=== PATIENT | female | born 1940 | race Caucasian/White ===

== ENCOUNTER 2017-05-02 13:12 | Observation (INO) | payer MEDICARE, BC ==
[2017-05-02] MEDS ORDERED: Aspirin 81 MG Tab.Chew PO ONE (13:55)
--- NOTE | 2017-05-02 14:11 | EDM.PDOC ---
ED HPI GENERAL MEDICAL PROBLEM - General Chief Complaint: Chest Pain Stated Complaint: CHEST PAIN/HEART PALPITATIONS Time Seen by Provider: 05/02/17 14:06 Source of Information: Reports: Patient History Limitations: Reports: No Limitations - History of Present Illness INITIAL COMMENTS - FREE TEXT/NARRATIVE: pt arrived with pressure in her chest and the feeling of palpitation. She states this started about 4-5 days.ago. She has not had severe chest pain. She has been mildly sob. Onset: Gradual, Other ( This has been going on for the past 5 days. ) Duration: Day(s): Location: Reports: Chest Associated Symptoms: Reports: No Other Symptoms, Cough, Shortness of Breath Chest Pain Score (Numeric/FACES): 5 - Related Data Allergies Allergy/AdvReac Type Severity Reaction Status Date / Time Sulfa (Sulfonamide Allergy Unknown Itching Verified 05/02/17 13:30 Antibiotics) Home Meds: Home Meds Multivitamin [Multivitamins] 1 each PO DAILY 02/08/13 [History] Neomycin/Polymyxin B Sulf/HC [Gspzozng-Fjpesgosj-Po Ear Soln] 1 drop EARBOTH DAILY 02/08/13 [History] Omeprazole 20 mg PO DAILY 02/08/13 [History] Quinapril HCl 20 mg PO DAILY 02/08/13 [History] Triamterene/Hydrochlorothiazid [Triamterene-HCTZ 37.5-25 MG] 1 each PO DAILY 04/22 [History] atorvaSTATin [Lipitor] 40 mg PO DAILY 02/08/13 [History] metFORMIN HCl [Metformin HCl] 1,000 mg PO BID 02/08/13 [History] glipiZIDE/Metformin HCl [GlipiZIDE-Metformin 5-500 MG] 1 each PO BID 05/02/17 [ History] Apixaban [Eliquis] 10 mg PO BID #60 tablet 05/03/17 [Rx] Past Medical History Cardiovascular History: Reports: High Cholesterol, Hypertension Gastrointestinal History: Reports: GERD 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: Musculoskeletal History: Reports: Arthritis, Back Pain, Chronic, Osteoarthritis Endocrine/Metabolic History: Reports: Diabetes, Type II Oncologic (Cancer) History: Reports: Basal Cell Carcinoma, Squamous Cell Carcinoma Dermatologic History: Reports: Melanoma, Other (See Below) Other Dermatologic History: actinic keratoses - Past Surgical History Cardiovascular Surgical History: Reports: Percutaneous Transluminal Angioplasty Musculoskeletal Surgical History: Reports: Knee Replacement Other Musculoskeletal Surgeries/Procedures:: right Social & Family History - Tobacco Use Smoking Status *Q: Never Smoker Second Hand Smoke Exposure: No - Caffeine Use Caffeine Use: Reports: Coffee - Recreational Drug Use Recreational Drug Use: No ED ROS GENERAL - Review of Systems Review Of Systems: See Below Constitutional: Reports: No Symptoms HEENT: Reports: No Symptoms Respiratory: Reports: No Symptoms Cardiovascular: Reports: Other ( chest pressure) Endocrine: Reports: No Symptoms GI/Abdominal: Reports: No Symptoms : Reports: No Symptoms Musculoskeletal: Reports: No Symptoms Skin: Reports: No Symptoms ED EXAM, GENERAL - Physical Exam Exam: See Below Free Text/Narrative:: pt arrived with palpitations.She has mild sob. When she notes the irregularitty she has chest pressure. Exam Limited By: No Limitations General Appearance: Alert, Mild Distress Ears: Normal TMs Nose: Normal Inspection Throat/Mouth: Normal Inspection Head: Atraumatic Neck: Normal Inspection Respiratory/Chest: No Respiratory Distress Cardiovascular: Regular Rate, Rhythm, Other ( She is noted to have an occasional pac. ) GI/Abdominal: Soft, Non-Tender (Female) Exam: Deferred Rectal (Female) Exam: Deferred Back Exam: Normal Inspection Extremities: Normal Inspection Neurological: Alert, Oriented, Normal Cognition Course - Vital Signs Last Recorded V/S: Last Vital Signs Temp 36.6 C 05/03/17 10:49 Pulse 73 05/03/17 10:49 Resp 22 H 05/03/17 10:49 BP 147/78 H 05/03/17 12:17 Pulse Ox 97 05/03/17 10:49 - Orders/Labs/Meds Labs: Laboratory Tests 05/02/17 05/02/17 05/02/17 Range/Units 13:53 14:00 14:00 WBC 8.0 (4.5-11.0) K/uL RBC 3.68 (3.30-5.50) M/uL Hgb 11.3 L (12.0-15.0) g/dL Hct 33.6 L (36.0-48.0) % MCV 91 (80-98) fL MCH 31 (27-31) pg MCHC 34 (32-36) % Plt Count 381 (150-400) K/uL Neut % (Auto) 66 (36-66) % Lymph % (Auto) 24 (24-44) % [place] % (Auto) 9 H (2-6) % Eos % (Auto) 2 (2-4) % Baso % (Auto) 0 (0-1) % D-Dimer, Quantitative 1890 H (0.0-400.0) ng/mL Sodium (140-148) mmol/L Potassium (3.6-5.2) mmol/L Chloride (100-108) mmol/L Carbon Dioxide (21-32) mmol/L Anion Gap (5.0-14.0) mmol/L BUN (7-18) mg/dL Creatinine (0.6-1.0) mg/dL Est Cr Clr Drug Dosing mL/min Estimated GFR (MDRD) (>60) Glucose (74-106) mg/dL Calcium (8.5-10.1) mg/dL Iron (50-170) ug/dL TIBC (250-450) ug/dl % Saturation (20-55) % Total Bilirubin (0.2-1.0) mg/dL AST (15-37) U/L ALT (12-78) U/L Alkaline Phosphatase (46-116) U/L Creatine Kinase (26-192) U/L Troponin I < 0.017 (0.000-0.056) ng/mL Total Protein (6.4-8.2) g/dL Albumin (3.4-5.0) g/dL Globulin (2.3-3.5) g/dL Albumin/Globulin Ratio (1.2-2.2) TSH, Ultra Sensitive (0.358-3.740) uIU/mL 05/02/17 05/02/17 05/02/17 Range/Units 14:00 14:05 14:05 WBC (4.5-11.0) K/uL RBC (3.30-5.50) M/uL Hgb (12.0-15.0) g/dL Hct (36.0-48.0) % MCV (80-98) fL MCH (27-31) pg MCHC (32-36) % Plt Count (150-400) K/uL Neut % (Auto) (36-66) % Lymph % (Auto) (24-44) % [place] % (Auto) (2-6) % Eos % (Auto) (2-4) % Baso % (Auto) (0-1) % D-Dimer, Quantitative (0.0-400.0) ng/mL Sodium 124 L (140-148) mmol/L Potassium 3.8 (3.6-5.2) mmol/L Chloride 93 L (100-108) mmol/L Carbon Dioxide 27 (21-32) mmol/L Anion Gap 7.8 (5.0-14.0) mmol/L BUN 18 (7-18) mg/dL Creatinine 1.0 (0.6-1.0) mg/dL Est Cr Clr Drug Dosing 39.04 mL/min Estimated GFR (MDRD) 54 L (>60) Glucose 72 L (74-106) mg/dL Calcium 9.5 (8.5-10.1) mg/dL Iron 57 (50-170) ug/dL TIBC 290 (250-450) ug/dl % Saturation 20 (20-55) % Total Bilirubin 0.4 (0.2-1.0) mg/dL AST 17 (15-37) U/L ALT 23 (12-78) U/L Alkaline Phosphatase 72 (46-116) U/L Creatine Kinase 115 (26-192) U/L Troponin I (0.000-0.056) ng/mL Total Protein 6.6 (6.4-8.2) g/dL Albumin 3.6 (3.4-5.0) g/dL Globulin 3.0 (2.3-3.5) g/dL Albumin/Globulin Ratio 1.2 (1.2-2.2) TSH, Ultra Sensitive 1.045 (0.358-3.740) uIU/mL Meds: Medications Discontinued Medications Generic Name Dose Route Start Last Admin Trade Name Freq PRN Reason Stop Dose Admin Acetaminophen 650 mg 05/02/17 19:15 Tylenol PO Q4H PRN Pain (Mild 1-3)/fever Apixaban 10 mg 05/02/17 21:00 05/03/17 12:19 Eliquis PO 10 mg BID APPLE Administration Aspirin 223 mg 05/02/17 13:55 05/02/17 14:07 Aspirin PO 05/02/17 13:56 223 mg ONETIME ONE Administration Aspirin 81 mg 05/03/17 09:00 05/03/17 12:18 Halfprin PO Not Given DAILY APPLE Atorvastatin Calcium 40 mg 05/03/17 09:00 05/03/17 12:18 Lipitor PO Not Given DAILY APPLE Dextrose 15 gm 05/02/17 19:15 Glutose 15 PO ONETIME PRN Hypoglycemia Dextrose/Water 50 ml 05/02/17 19:15 Dextrose 50% In Water IV ONETIME PRN Hypoglycemia Sodium Chloride 90 mls @ 4 mls/sec 05/02/17 15:45 05/02/17 16:12 Normal Saline IV 4 mls/sec ASDIRECTED APPLE Administration Sodium Chloride 1,000 mls @ 125 mls/hr 05/02/17 19:15 05/03/17 11:09 Normal Saline IV 125 mls/hr ASDIRECTED APPLE Administration Insulin Aspart 0 unit 05/02/17 20:00 05/03/17 11:50 Novolog SUBCUT Not Given QIDACANDBED [facility] Protocol Iopamidol 100 ml 05/02/17 15:45 05/02/17 16:12 Isovue-370 (76%) IV 100 ml . DIRECTED APPLE Administration Metformin HCl 1,000 mg 05/02/17 21:45 05/03/17 08:00 Glucophage PO Not Given BIDMEALS [facility] Ondansetron HCl 4 mg 05/02/17 19:15 Zofran IV Q4H PRN Nausea/Vomiting Oxycodone HCl 5 mg 05/02/17 19:15 Oxycodone PO Q4H PRN Pain (moderate 4-6) Pantoprazole Sodium 40 mg 05/03/17 07:30 05/03/17 07:30 Protonix PO Not Given ACBREAKFAST APPLE Quinapril HCl 20 mg 05/03/17 09:00 05/03/17 12:17 Accupril PO 20 mg DAILY APPLE Administration Sodium Chloride 10 ml 05/02/17 15:44 05/02/17 16:07 Saline Flush FLUSH 05/02/17 15:45 10 ml ONETIME ONE Administration Sodium Chloride 10 ml 05/02/17 19:15 Saline Flush FLUSH ASDIRECTED PRN Keep Vein Open Triamterene/HCTZ 1 each 05/03/17 09:00 05/03/17 12:18 Dyazide 25-37.5 Mg PO 1 each DAILY APPLE Administration - Re-Assessments/Exams Free Text/Narrative Re-Assessment/Exam: 05/02/17 15:39 pt has a up ddimer. Her rt leg is tender in the thigh area. She had an Us that was neg. Her chest pressure has been going on for about 1 week. She is very fatiqued. Her trop is neg. Her na is borderline and her hg is 11.4. She is not eating well at this point. 05/02/17 15:40 05/02/17 17:18 angio of the chest revealed a segmental PE in the rt upper lobe. The situation was discussed with the pt and she would rather be hospitalized particurly in the lite of the heart irregularity which we have not demonstrated. Her heart was monitored and she has had a few pacs. Departure - Departure Time of Disposition: 17:21 Disposition: Admitted As Inpatient 68 Condition: Fair Clinical Impression: Pulmonary emboli, Total knee replacement status
--- NOTE | 2017-05-02 14:35 | CR ---
Chest 1V Frontal INDICATION: palpitations and chest pressure FINDINGS: Comparison 09/09/2007. Negative AP portable chest x-ray.
[2017-05-02] MEDS ORDERED: Sodium Chloride 0.9% 10 ML Syringe FLUSH ONE (15:44)
[2017-05-02] MEDS ORDERED: Iopamidol 755 Mg/ML 100 ML Bottle IV SCH (15:45)
[2017-05-02] MEDS ORDERED: Sodium Chloride 0.9% 90 ML IV SCH (15:45)
--- NOTE | 2017-05-02 17:59 | PCM.HP ---
H&P History of Present Illness - General Date of Service: 05/02/17 Admit Problem/Dx: Source of Information: Patient, Provider, RN Notes Reviewed History Limitations: Reports: No Limitations - History of Present Illness Initial Comments - Free Text/Narative: Ms. Mensah is a 76-year-old woman who was admitted to observation status for further evaluation and management of small subsegmental pulmonary embolism and palpitations. She is status post right total knee arthroplasty done 4 weeks ago. Is having some ongoing difficulty bending the knee but otherwise has been able to walk fairly well. Over the last 4-5 days is noted episodes of her heart racing or fluttering sensation in her chest and associated with this has been some shortness of breath. Laboratory studies are unremarkable there is no evidence of underlying infection. D-dimer was found to be elevated, venous Doppler study of the right lower extremity showed no evidence of deep vein thrombosis. CT angiogram of the chest does document a small sub-segmental pulmonary embolism.she is been monitored in the emergency department and there' ve been no significant cardiac dysrhythmias, other than occasional premature atrial complexes. Chest Pain Score (Numeric/FACES): 5 - Related Data Allergies/Adverse Reactions: Allergies Allergy/AdvReac Type Severity Reaction Status Date / Time Sulfa (Sulfonamide Allergy Unknown Itching Verified 05/02/17 13:30 Antibiotics) Home Medications: Home Meds Aspirin [Halfprin] 81 mg PO DAILY 02/08/13 [History] Multivitamin [Multivitamins] 1 each PO DAILY 02/08/13 [History] Neomycin/Polymyxin B Sulf/HC [Hgjahyfr-Zifrhgdpm-Gq Ear Soln] 1 drop EARBOTH DAILY 02/08/13 [History] Omeprazole 20 mg PO DAILY 02/08/13 [History] Quinapril HCl 20 mg PO DAILY 02/08/13 [History] Triamterene/Hydrochlorothiazid [Triamterene-HCTZ 37.5-25 MG] 1 each PO DAILY 04/22 [History] atorvaSTATin [Lipitor] 40 mg PO DAILY 02/08/13 [History] metFORMIN HCl [Metformin HCl] 1,000 mg PO BID 02/08/13 [History] Past Medical History Cardiovascular History: Reports: High Cholesterol, Hypertension Gastrointestinal History: Reports: GERD 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: Musculoskeletal History: Reports: Arthritis, Back Pain, Chronic, Osteoarthritis Endocrine/Metabolic History: Reports: Diabetes, Type II Oncologic (Cancer) History: Reports: Basal Cell Carcinoma, Squamous Cell Carcinoma Dermatologic History: Reports: Melanoma, Other (See Below) Other Dermatologic History: actinic keratoses - Past Surgical History Cardiovascular Surgical History: Reports: Percutaneous Transluminal Angioplasty Musculoskeletal Surgical History: Reports: Knee Replacement Other Musculoskeletal Surgeries/Procedures:: right Social & Family History - Tobacco Use Smoking Status *Q: Never Smoker Second Hand Smoke Exposure: No - Caffeine Use Caffeine Use: Reports: Coffee - Recreational Drug Use Recreational Drug Use: No H&P Review of Systems - Review of Systems: Review Of Systems: See Below General: Reports: Weakness, Decreased Appetite. Denies: Fever, Chills, Diaphoresis HEENT: Reports: No Symptoms Pulmonary: Reports: Shortness of Breath. Denies: Wheezing, Pleuritic Chest Pain , Cough, Sputum, Hemoptysis Cardiovascular: Reports: Dyspnea on Exertion. Denies: Chest Pain, Palpitations , Orthopnea, PND, Edema, Lightheadedness Gastrointestinal: Reports: No Symptoms Genitourinary: Reports: No Symptoms Musculoskeletal: Reports: Joint Pain Skin: Reports: No Symptoms Psychiatric: Reports: No Symptoms Neurological: Reports: No Symptoms Hematologic/Lymphatic: Reports: No Symptoms Immunologic: Reports: No Symptoms Exam - Exam Exam: See Below - Vital Signs Vital Signs: Last Vital Signs Temp 97.3 F 05/02/17 13:46 Pulse 71 05/02/17 14:59 Resp 17 05/02/17 14:59 BP 141/84 H 05/02/17 14:59 Pulse Ox 98 05/02/17 14:59 Weight: 172 lb - Exam Quality Assessment: DVT Prophylaxis General: Alert, Oriented, Cooperative HEENT: Conjunctiva Clear, Hearing Intact, Mucosa Moist & [place], Normal Nasal Septum, Posterior Pharynx Clear, Pupils Equal Neck: Supple, Trachea Midline, +2 Carotid Pulse wo Bruit Lungs: Clear to Auscultation, Normal Respiratory Effort Cardiovascular: Regular Rate, Regular Rhythm, Normal S1, Normal S2. No: Systolic Murmur, Diastolic Murmur GI/Abdominal Exam: Soft, Non-Tender, No Organomegaly, No Distention Back Exam: Normal Inspection, Full Range of Motion Extremities: Non-Tender, No Pedal Edema, Other (Incision right knee healing well with no evidence of underlying infection) Skin: Warm, Dry, Intact Neurological: Cranial Nerves Intact, Strength Equal Bilateral, Normal Speech, Normal Tone, Sensation Intact. No: Focal Deficit Neuro Extensive - Mental Status: Alert, Oriented x3, Normal Mood/Affect, Normal Cognition, Memory Intact - Patient Data Lab Results Last 24 hrs: Laboratory Results - last 24 hr 05/02/17 05/02/17 05/02/17 Range/Units 13:53 14:00 14:00 WBC 8.0 (4.5-11.0) K/uL RBC 3.68 (3.30-5.50) M/uL Hgb 11.3 L (12.0-15.0) g/dL Hct 33.6 L (36.0-48.0) % MCV 91 (80-98) fL MCH 31 (27-31) pg MCHC 34 (32-36) % Plt Count 381 (150-400) K/uL Neut % (Auto) 66 (36-66) % Lymph % (Auto) 24 (24-44) % [place] % (Auto) 9 H (2-6) % Eos % (Auto) 2 (2-4) % Baso % (Auto) 0 (0-1) % D-Dimer, Quantitative 1890 H (0.0-400.0) ng/mL Sodium (140-148) mmol/L Potassium (3.6-5.2) mmol/L Chloride (100-108) mmol/L Carbon Dioxide (21-32) mmol/L Anion Gap (5.0-14.0) mmol/L BUN (7-18) mg/dL Creatinine (0.6-1.0) mg/dL Est Cr Clr Drug Dosing mL/min Estimated GFR (MDRD) (>60) Glucose (74-106) mg/dL Calcium (8.5-10.1) mg/dL Iron (50-170) ug/dL TIBC (250-450) ug/dl % Saturation (20-55) % Total Bilirubin (0.2-1.0) mg/dL AST (15-37) U/L ALT (12-78) U/L Alkaline Phosphatase (46-116) U/L Creatine Kinase (26-192) U/L Troponin I < 0.017 (0.000-0.056) ng/mL Total Protein (6.4-8.2) g/dL Albumin (3.4-5.0) g/dL Globulin (2.3-3.5) g/dL Albumin/Globulin Ratio (1.2-2.2) TSH, Ultra Sensitive (0.358-3.740) uIU/mL 05/02/17 05/02/17 05/02/17 Range/Units 14:00 14:05 14:05 WBC (4.5-11.0) K/uL RBC (3.30-5.50) M/uL Hgb (12.0-15.0) g/dL Hct (36.0-48.0) % MCV (80-98) fL MCH (27-31) pg MCHC (32-36) % Plt Count (150-400) K/uL Neut % (Auto) (36-66) % Lymph % (Auto) (24-44) % [place] % (Auto) (2-6) % Eos % (Auto) (2-4) % Baso % (Auto) (0-1) % D-Dimer, Quantitative (0.0-400.0) ng/mL Sodium 124 L (140-148) mmol/L Potassium 3.8 (3.6-5.2) mmol/L Chloride 93 L (100-108) mmol/L Carbon Dioxide 27 (21-32) mmol/L Anion Gap 7.8 (5.0-14.0) mmol/L BUN 18 (7-18) mg/dL Creatinine 1.0 (0.6-1.0) mg/dL Est Cr Clr Drug Dosing 39.04 mL/min Estimated GFR (MDRD) 54 L (>60) Glucose 72 L (74-106) mg/dL Calcium 9.5 (8.5-10.1) mg/dL Iron 57 (50-170) ug/dL TIBC 290 (250-450) ug/dl % Saturation 20 (20-55) % Total Bilirubin 0.4 (0.2-1.0) mg/dL AST 17 (15-37) U/L ALT 23 (12-78) U/L Alkaline Phosphatase 72 (46-116) U/L Creatine Kinase 115 (26-192) U/L Troponin I (0.000-0.056) ng/mL Total Protein 6.6 (6.4-8.2) g/dL Albumin 3.6 (3.4-5.0) g/dL Globulin 3.0 (2.3-3.5) g/dL Albumin/Globulin Ratio 1.2 (1.2-2.2) TSH, Ultra Sensitive 1.045 (0.358-3.740) uIU/mL Result Diagrams: 05/02/17 14:00 05/02/17 14:00 *Q Meaningful Use (ADM) - VTE *Q VTE Criteria *Q: - VTE Risk Assess *Q Each Risk Factor Represents 1 Point: Obesity ( BMI > 25 kg/m2) Total Score 1 Point Risk Factors: 1 Each Risk Factor Represents 2 Points: Age 60 - 74 Years Total Score 2 Point Risk Factors: 2 Each Risk Factor Represents 3 Points: None Total Score 3 Point Risk Factors: 0 Each Risk Factor Represents 5 Points: Elective Major Lower Extremity Arthroplasty Total Score 5 Point Risk Factors: 5 Venous Thromboembolism Risk Factor Score *Q: 8 - Stroke *Q Stroke Criteria *Q: - AMI *Q AMI Criteria *Q: Problem List Initiated/Reviewed/Updated: Yes Orders Last 24hrs: Active Orders 24 hr Category Date Time Status Patient Status Manage Transfer [TRANSFER] Routine ADT 05/02/17 17:43 Ordered EKG Documentation Completion [RC] ASDIRECTED Care 05/02/17 13:53 Active Ang Chest [CT] Stat Exams 05/02/17 15:37 Taken VL Duplex Lwr Ext Veins Ltd Rt [US] Stat Exams 05/02/17 14:41 Taken UA W/MICROSCOPIC [URIN] Urgent Lab 05/02/17 13:53 Uncollected Iopamidol [Isovue-370 (76%)] Med 05/02/17 15:45 Active 100 ml IV . DIRECTED Sodium Chloride 0.9% [Normal Saline] 90 ml Med 05/02/17 15:45 Active IV ASDIRECTED Resuscitation Status Routine Resus Stat 05/02/17 17:45 Ordered EKG 12 Lead [EK] Routine Ther 05/02/17 13:53 Ordered Medication Orders Sodium Chloride (Normal Saline) 90 mls @ 4 mls/sec IV ASDIRECTED APPLE Last Admin: 05/02/17 16:12 Dose: 4 mls/sec Iopamidol (Isovue-370 (76%)) 100 ml IV . DIRECTED APPLE Last Admin: 05/02/17 16:12 Dose: 100 ml Assessment/Plan Comment:: ASSESSMENT AND PLAN SMALL PULMONARY EMBOLISM-mild symptoms of palpitation and shortness of breath over the past 4-5 days. No evidence of persistent thrombus in the right lower extremity by venous Doppler study. I discussed options for anticoagulation including Lovenox overlap therapy with warfarin versus Eliquis. Risks and goals of each approach and she has decided to try the eliquis. -Eliquis 10 mg by mouth twice a day 1 week, then 5 mg by mouth twice a day thereafter, for 3 months PALPITATIONS-history of fluttering sensation in the chest over the past 4-5 days. No evidence of significant dysrhythmias identified while monitored in the emergency department -Cardiac monitoring STATUS POST RIGHT TOTAL KNEE ARTHROPLASTY-incision is clean with no evidence of underlying infection TYPE 2 DIABETES MELLITUS-she reports a blood glucose levels have been somewhat variable since surgery -Continue metformin -4 times a day glucometer -Low-dose sliding scale NovoLog MAINTENANCE ISSUES -DVT prophylaxis; current therapy with Eliquis should provide adequate DVT prophylaxis -GI prophylaxis; continue outpatient PPI therapy -Dickinson catheter; not indicated -Nutrition; 2 g sodium consistent carb diet -Nicotine dependence; not required CODE STATUS-FULL CODE ADMISSION STATUS-this patient will be admitted to observation status, expect no more than a one night hospital stay for evaluation and management of problems as outlined above. DISPOSITION-anticipate discharge to home after the hospital stay. PRIMARY CARE PROVIDER-Dr. Haynes
[2017-05-02] MEDS ORDERED: oxyCODONE 5 MG Tab PO PRN (19:15)
[2017-05-02] MEDS ORDERED: Ondansetron 4 MG/2 ML SDV IV PRN (19:15)
[2017-05-02] MEDS ORDERED: 50% Dextrose in Water 50 ML Syringe IV PRN (19:15)
[2017-05-02] MEDS ORDERED: Sodium Chloride 0.9% 10 ML Syringe FLUSH PRN (19:15)
[2017-05-02] MEDS ORDERED: Acetaminophen 325 MG Tab PO PRN (19:15)
[2017-05-02] MEDS ORDERED: Glucose Gel 15 GM in 37.5 GM Tube PO PRN (19:15)
[2017-05-02] MEDS: Sodium Chloride 0.9% 1,000 ML IV SCH (19:27)
[2017-05-02] MEDS: Insulin Aspart 100 Units/ML 3 ML Pen SUBCUT SCH (21:57)
[2017-05-02] MEDS: metFORMIN 500 MG Tab PO SCH (21:58)
[2017-05-02] MEDS: Apixaban 5 MG Tab PO SCH (22:44)
[2017-05-03] MEDS: Sodium Chloride 0.9% 1,000 ML IV SCH ×2 (03:30→11:09)
[2017-05-03] MEDS ORDERED: Pantoprazole 40 MG Tab.CR PO SCH (07:30)
[2017-05-03] MEDS: metFORMIN 500 MG Tab PO SCH (08:00)
[2017-05-03] MEDS: Insulin Aspart 100 Units/ML 3 ML Pen SUBCUT SCH ×2 (08:10→11:50)
[2017-05-03] MEDS ORDERED: Aspirin 81 MG Tab.EC PO SCH (09:00)
[2017-05-03] MEDS ORDERED: Hydrochlorothiazide/Triamterene 25-37.5 MG Cap PO SCH (09:00)
[2017-05-03] MEDS ORDERED: atorvaSTATin 20 MG Tab PO SCH (09:00)
[2017-05-03 10:51] VITALS: BP 147/78
--- NOTE | 2017-05-03 12:18 | PCM.DCSUM1 ---
Discharge Summary - Hospital Course Brief History: Ms. Mensah is a 76-year-old woman who was admitted to observation status through the emergency department with new diagnosis of small right lung pulmonary embolism. - Discharge Data Discharge Date: 05/03/17 Discharge Disposition: Home, Self-Care 01 Condition: Stable - Discharge Diagnosis/Problem(s) (1) Pulmonary emboli SNOMED Code(s): 83955478 ICD Code: I26.99 - OTHER PULMONARY EMBOLISM WITHOUT ACUTE COR PULMONALE Status: Acute Current Visit: Yes (2) Total knee replacement status SNOMED Code(s): 8077963583506, 0292831225108 ICD Code: Z96.659 - PRESENCE OF UNSPECIFIED ARTIFICIAL KNEE JOINT Status: Acute Current Visit: Yes (3) Essential hypertension SNOMED Code(s): 11377650 ICD Code: I10 - ESSENTIAL (PRIMARY) HYPERTENSION Status: Chronic Current Visit: No (4) Type 2 diabetes mellitus SNOMED Code(s): 02185196 ICD Code: E11.9 - TYPE 2 DIABETES MELLITUS WITHOUT COMPLICATIONS Status: Chronic Current Visit: No - Patient Summary/Data Consults: Consultations 05/02/17 19:15 PT Evaluation and Treatment [CONS] Routine Please Evaluate and Treat. PT Reason for Consult: Status post right total knee arthroplasty This query below is only for informational purposes and is not editable. Hospital Course: Ms. Mensah is a 76-year-old woman who underwent total right knee arthroplasty 4 weeks ago. Postoperative course complicated by hematoma posterior to the right knee. For a period of 4-5 days prior to this admission she had noted some increased shortness of breath as well as a fluttering sensation in her chest. On evaluation emergency Department chest x-ray was unremarkable, EKG and cardiac monitoring showed no significant cardiac dysrhythmias other than occasional premature atrial complexes. Laboratory studies were unremarkable, CT scan of the chest with PE protocol was obtained and did show evidence of a small pulmonary embolism in the right upper lung. She was admitted to the hospital on observation status, after discussion concerning options for anticoagulation she was started on Eliquis 10 mg twice daily. She was stable throughout her hospital stay, blood glucose levels were monitored regularly and she was continued on her usual oral hypoglycemic therapy in addition to low- dose sliding scale NovoLog. On the morning of discharge she was seen and evaluated by physical therapy who recommended ongoing outpatient management. She will be discharged on Eliquis 10 mg twice daily for a total of one week, then dose will be decreased to 5 mg twice daily thereafter. Activity will be as tolerated and she will continue outpatient physical therapy. She will resume her usual consistent carb diet, follow-up appointment will be scheduled with Dr. Haynes within one week. - Patient Instructions Diet: Usual Diet as Tolerated Activity: As Tolerated Other/Special Instructions: Please schedule follow-up appointment with Dr. Haynes within one week. Continue outpatient physical therapy as previously scheduled. - Discharge Plan Prescriptions/Med Rec: Apixaban [Eliquis] 10 mg PO BID #60 tablet Home Medications: Home Meds Aspirin [Halfprin] 81 mg PO DAILY 02/08/13 [History] Multivitamin [Multivitamins] 1 each PO DAILY 02/08/13 [History] Neomycin/Polymyxin B Sulf/HC [Hzkcfoss-Eyxhmasqv-Gh Ear Soln] 1 drop EARBOTH DAILY 02/08/13 [History] Omeprazole 20 mg PO DAILY 02/08/13 [History] Quinapril HCl 20 mg PO DAILY 02/08/13 [History] Triamterene/Hydrochlorothiazid [Triamterene-HCTZ 37.5-25 MG] 1 each PO DAILY 04/22 [History] atorvaSTATin [Lipitor] 40 mg PO DAILY 02/08/13 [History] metFORMIN HCl [Metformin HCl] 1,000 mg PO BID 02/08/13 [History] glipiZIDE/Metformin HCl [GlipiZIDE-Metformin 5-500 MG] 1 each PO BID 05/02/17 [ History] Apixaban [Eliquis] 10 mg PO BID #60 tablet 05/03/17 [Rx] Referrals: Renato Haynes MD [Primary Care Provider] - - Patient Data Vitals - Most Recent: Last Vital Signs Temp 97.8 F 05/03/17 10:49 Pulse 73 05/03/17 10:49 Resp 22 H 05/03/17 10:49 BP 147/78 H 05/03/17 10:49 Pulse Ox 97 05/03/17 10:49 Weight - Most Recent: 170 lb 12.8 oz I&O - Last 24 hours: Intake & Output 05/02/17 05/03/17 05/03/17 22:59 06:59 14:59 Intake Total 600 1185 Output Total 1000 1150 Balance -400 35 Lab Results - Last 24 hrs: Laboratory Results - last 24 hr 05/03/17 Range/Units 06:02 Sodium 137 L (140-148) mmol/L Potassium 4.3 (3.6-5.2) mmol/L Chloride 102 (100-108) mmol/L Carbon Dioxide 29 (21-32) mmol/L Anion Gap 10.3 (5.0-14.0) mmol/L BUN 16 (7-18) mg/dL Creatinine 0.9 (0.6-1.0) mg/dL Est Cr Clr Drug Dosing 43.37 mL/min Estimated GFR (MDRD) > 60 (>60) Glucose 94 (74-106) mg/dL Calcium 9.2 (8.5-10.1) mg/dL Med Orders - Current: Current Medications Acetaminophen (Tylenol) 650 mg PO Q4H PRN PRN Reason: Pain (Mild 1-3)/fever Apixaban (Eliquis) 10 mg PO BID [facility] Last Admin: 05/02/17 22:44 Dose: 10 mg Aspirin (Halfprin) 81 mg PO DAILY [facility] Atorvastatin Calcium (Lipitor) 40 mg PO DAILY [facility] Dextrose (Glutose 15) 15 gm PO ONETIME PRN PRN Reason: Hypoglycemia Dextrose/Water (Dextrose 50% In Water) 50 ml IV ONETIME PRN PRN Reason: Hypoglycemia Sodium Chloride (Normal Saline) 1,000 mls @ 125 mls/hr IV ASDIRECTED [facility] Last Admin: 05/03/17 11:09 Dose: 125 mls/hr Insulin Aspart (Novolog) 0 unit SUBCUT QIDACANDBED [facility] PRN Reason: Protocol Last Admin: 05/03/17 11:50 Dose: Not Given Metformin HCl (Glucophage) 1,000 mg PO BIDMEALS [facility] Last Admin: 05/03/17 08:00 Dose: Not Given Ondansetron HCl (Zofran) 4 mg IV Q4H PRN PRN Reason: Nausea/Vomiting Oxycodone HCl (Oxycodone) 5 mg PO Q4H PRN PRN Reason: Pain (moderate 4-6) Pantoprazole Sodium (Protonix) 40 mg PO ACBREAKFAST [facility] Last Admin: 05/03/17 07:30 Dose: Not Given Quinapril HCl (Accupril) 20 mg PO DAILY [facility] Sodium Chloride (Saline Flush) 10 ml FLUSH ASDIRECTED PRN PRN Reason: Keep Vein Open Triamterene/HCTZ (Dyazide 25-37.5 Mg) 1 each PO DAILY [facility] Discontinued Medications Aspirin (Aspirin) 223 mg PO ONETIME ONE Stop: 05/02/17 13:56 Last Admin: 05/02/17 14:07 Dose: 223 mg Sodium Chloride (Normal Saline) 90 mls @ 4 mls/sec IV ASDIRECTED [facility] Last Admin: 05/02/17 16:12 Dose: 4 mls/sec Iopamidol (Isovue-370 (76%)) 100 ml IV . DIRECTED [facility] Last Admin: 05/02/17 16:12 Dose: 100 ml Sodium Chloride (Saline Flush) 10 ml FLUSH ONETIME ONE Stop: 05/02/17 15:45 Last Admin: 05/02/17 16:07 Dose: 10 ml *Q Meaningful Use (DIS) - VTE *Q VTE Criteria *Q: VTE Pharmacological Contraindications *Q: High INR Value - Stroke *Q Stroke Criteria *Q: - AMI *Q AMI Criteria *Q:
[2017-05-03] MEDS: Apixaban 5 MG Tab PO SCH (12:19)
== END 2017-05-03 13:45 | disposition home or self-care (01) ==
LOC: JP.ED 13:12 → JP.MS 17:43
PROVIDERS: ADMIT Hospitalist; ATTEND Hospitalist
DX: I26.99 Other pulmonary embolism without acute cor pulmonale (principal); I10 Essential (primary) hypertension; E11.9 Type 2 diabetes mellitus without complications; E78.00 Pure hypercholesterolemia, unspecified; K21.9 Gastro-esophageal reflux disease without esophagitis; Z96.659 Presence of unspecified artificial knee joint; Z79.82 Long term (current) use of aspirin; Z79.84 Long term (current) use of oral hypoglycemic drugs; Z79.899 Other long term (current) drug therapy; Z88.2 Allergy status to sulfonamides
CPT/HCPCS: 36415; 71045; 71275; 80048; 80053; 82550; 82962; 83550; 84443; 84484; 85025; 85379; 93005; 93971; 96361; 96365; 96374; 97110; 97161; 99285; A9270; G0378; J7030; J7040; J7050; Q9967; 93010; 96360; 99217; 99220; 99284

== ENCOUNTER 2018-07-18 13:40 | Outpatient (CLI) | payer MEDICARE, BC ==
[2018-07-18] MEDS ORDERED: Bupivacaine 0.25% 10 ML SDV ONE (13:46)
[2018-07-18] MEDS ORDERED: methylPREDNISolone Acetate 40 MG/ML SDV ONE (13:46)
[2018-07-18] MEDS ORDERED: methylPREDNISolone Acetate 80 MG/ML SDV ONE (13:58)
[2018-07-18 14:35] VITALS: BP 154/94; PULSE 77
--- NOTE | 2018-07-18 17:08 | ANES ---
DATE OF SERVICE: 07/18/2018 INDICATION: Mariam is a 78-year-old female patient referred to us by Dr. Lopez for epidural steroid injection. She has had 2 back in March and April with not a whole lot of relief and came in today for her #3 in 6 months period to see if this helps with her recurring back pain and basically her right knee issues. She goes to see Dr. Lopez to kind of get maybe some more answers related to whether it is her back or her knee in a few weeks and wanted this done prior to seeing Dr. Lopez to see if it helped. Risks and benefits were reviewed again with the patient. The patient verbalized her understanding and wishes to proceed with epidural steroid injection today. Please refer to the doctor's notes for ICD-10 code and diagnosis. TECHNIQUE: The patient was then sat at the edge of the bed. Betadine prep x3 to the lumbar region was done. Sterile drape was placed. 1% lidocaine skin wheal and deep was done. A 17-gauge Tuohy needle was inserted at approximately the L4-LS position. Loss of resistance was achieved. Negative paresthesia, negative heme, and negative CSF were noted. I then proceeded to give the patient 7 mL of sterile normal saline with 2 mL of 0.25% Sensorcaine and 1 mL of 80 mg of Depo-Medrol. The Tuohy needle was then flushed and withdrawn. Sterile drape was taken down. Betadine was cleaned off her back, and a Band-Aid was placed over the puncture site for hemostasis. The patient tolerated the procedure without difficulty. Please refer to the nurse's notes for vital signs. After the appropriate amount of time, patient will be discharged per ACU protocol. Petros Megn CRNA /[id number]
== END 2018-07-18 14:36 | disposition home or self-care (01) ==
LOC: JP.PAIN 13:40
PROVIDERS: ATTEND Orthopaedic Surgery
DX: M48.061 Spinal stenosis, lumbar region without neurogenic claudication (principal)
CPT/HCPCS: 62322; J1040; J3490; J1030

== ENCOUNTER 2019-06-04 11:28 | Emergency (ER) | payer MEDICARE, BC ==
--- NOTE | 2019-06-04 13:28 | CR ---
CHEST: Portable 06/04/2019 at 12:40 PM CLINICAL HISTORY:Chest pain COMPARISON:CT April 2017 FINDINGS: The heart size, pulmonary vascularity and hilar structures are normal. No infiltrate effusion or pneumothorax is seen. There are atherosclerotic changes in the aorta. IMPRESSION: No acute cardiopulmonary process.
--- NOTE | 2019-06-04 14:05 | EDM.PDOC ---
ED HPI GENERAL MEDICAL PROBLEM - General Chief Complaint: Chest Pain Stated Complaint: CHEST PAIN, SOB Time Seen by Provider: 06/04/19 12:15 Source of Information: Reports: Patient History Limitations: Reports: No Limitations - History of Present Illness INITIAL COMMENTS - FREE TEXT/NARRATIVE: pt is having episodes of chest pressure and marked sob. She was walking from getting the mail yesterdasy and she had a acute episode. Onset: Gradual Duration: Hour(s): Location: Reports: Chest, Generalized, Other ( pt feels sob. ) - Related Data Allergies Allergy/AdvReac Type Severity Reaction Status Date / Time Sulfa (Sulfonamide Allergy Unknown Itching Verified 06/04/19 11:53 Antibiotics) Home Meds: Home Meds Multivitamin [Multivitamins] 1 each PO DAILY 02/08/13 [History] Neomycin/Polymyxin B Sulf/HC [Eeozwsmp-Yfawknxtc-Zv Ear Soln] 1 drop EARBOTH DAILY 02/08/13 [History] Omeprazole 20 mg PO DAILY 02/08/13 [History] Quinapril HCl 20 mg PO DAILY 02/08/13 [History] Triamterene/Hydrochlorothiazid [Triamterene-HCTZ 37.5-25 MG] 1 each PO DAILY 04/22 [History] atorvaSTATin [Lipitor] 40 mg PO BEDTIME 02/08/13 [History] metFORMIN HCl [Metformin HCl] 1,000 mg PO BID 02/08/13 [History] glipiZIDE [Glucotrol] 5 mg PO DAILY 06/04/19 [History] Past Medical History Cardiovascular History: Reports: High Cholesterol, Hypertension Gastrointestinal History: Reports: [employer] History: Reports: Musculoskeletal History: Reports: Arthritis, Back Pain, Chronic, Osteoarthritis , Other (See Below) Other Musculoskeletal History: Possible trigger finger L 3rd digit Psychiatric History: Reports: Anxiety Endocrine/Metabolic History: Reports: Diabetes, Type II Oncologic (Cancer) History: Reports: Basal Cell Carcinoma, Squamous Cell Carcinoma Dermatologic History: Reports: Melanoma, Other (See Below) Other Dermatologic History: actinic keratoses - Past Surgical History Cardiovascular Surgical History: Reports: Percutaneous Transluminal Angioplasty Musculoskeletal Surgical History: Reports: Knee Replacement Other Musculoskeletal Surgeries/Procedures:: right Social & Family History - Tobacco Use Smoking Status *Q: Never Smoker - Caffeine Use Caffeine Use: Reports: Coffee - Recreational Drug Use Recreational Drug Use: No ED ROS GENERAL - Review of Systems Review Of Systems: See Below Constitutional: Reports: No Symptoms HEENT: Reports: No Symptoms Respiratory: Reports: Shortness of Breath Cardiovascular: Reports: Other ( chest pressure) Endocrine: Reports: No Symptoms GI/Abdominal: Reports: No Symptoms : Reports: No Symptoms Musculoskeletal: Reports: No Symptoms ED EXAM, GENERAL - Physical Exam Exam: See Below Free Text/Narrative:: pt arrived with a history of chest pressure and sob off and on. She had a very sig episode yesterday. Exam Limited By: No Limitations General Appearance: Alert, Anxious, Other ( she is not having distress at this time. ) Ears: Normal TMs Nose: Normal Inspection Throat/Mouth: Normal Inspection Head: Atraumatic Neck: Normal Inspection Respiratory/Chest: No Respiratory Distress Cardiovascular: Regular Rate, Rhythm GI/Abdominal: Soft, Non-Tender (Female) Exam: Deferred Rectal (Female) Exam: Deferred Back Exam: Normal Inspection Extremities: Normal Inspection Course - Vital Signs Last Recorded V/S: Last Vital Signs Temp Pulse 66 06/04/19 14:12 Resp 15 06/04/19 14:12 BP 141/82 H 06/04/19 14:12 Pulse Ox 99 06/04/19 14:12 - Orders/Labs/Meds Orders: Active Orders 24 hr Category Date Time Status EKG Documentation Completion [RC] ASDIRECTED Care 06/04/19 11:54 Active UA W/MICROSCOPIC [URIN] Urgent Lab 06/04/19 12:04 Received Iopamidol [Isovue-370 (76%)] Med 06/04/19 15:15 Active 76 ml IV . DIRECTED Sodium Chloride 0.9% [Normal Saline] 1,000 ml Med 06/04/19 14:45 Active IV ASDIRECTED Sodium Chloride 0.9% [Normal Saline] 75 ml Med 06/04/19 15:15 Active IV ASDIRECTED Sodium Chloride 0.9% [Saline Flush] Med 06/04/19 14:39 Active 10 ml FLUSH ASDIRECTED PRN Saline Lock Insert [OM.PC] Routine Oth 06/04/19 14:39 Ordered EKG 12 Lead [EK] Routine Ther 06/04/19 11:54 Ordered Medication Orders Sodium Chloride (Normal Saline) 1,000 mls @ 999 mls/hr IV ASDIRECTED [facility] Last Admin: 06/04/19 14:52 Dose: 999 mls/hr Sodium Chloride (Normal Saline) 75 mls @ 4 mls/sec IV ASDIRECTED [facility] Last Admin: 06/04/19 15:05 Dose: 4 mls/sec Iopamidol (Isovue-370 (76%)) 76 ml IV . DIRECTED [facility] Last Admin: 06/04/19 15:04 Dose: 76 ml Sodium Chloride (Saline Flush) 10 ml FLUSH ASDIRECTED PRN PRN Reason: Keep Vein Open Last Admin: 06/04/19 15:05 Dose: 10 ml Labs: Laboratory Tests 06/04/19 06/04/19 06/04/19 Range/Units 12:04 12:04 12:04 WBC 8.3 (4.5-11.0) K/uL RBC 4.14 (3.30-5.50) M/uL Hgb 12.6 (12.0-15.0) g/dL Hct 37.7 (36.0-48.0) % MCV 91 (80-98) fL MCH 30 (27-31) pg MCHC 33 (32-36) % Plt Count 348 (150-400) K/uL Neut % (Auto) 67 H (36-66) % Lymph % (Auto) 23 L (24-44) % Redwood % (Auto) 8 H (2-6) % Eos % (Auto) 2 (2-4) % Baso % (Auto) 1 (0-1) % D-Dimer, Quantitative (0.0-400.0) ng/mL Sodium (140-148) mmol/L Potassium (3.6-5.2) mmol/L Chloride (100-108) mmol/L Carbon Dioxide (21-32) mmol/L Anion Gap (5.0-14.0) mmol/L BUN (7-18) mg/dL Creatinine (0.6-1.0) mg/dL Est Cr Clr Drug Dosing mL/min Estimated GFR (MDRD) (>60) Glucose (74-106) mg/dL Calcium (8.5-10.1) mg/dL Total Bilirubin (0.2-1.0) mg/dL AST (15-37) U/L ALT (12-78) U/L Alkaline Phosphatase (46-116) U/L Troponin I < 0.017 (0.000-0.056) ng/mL NT-Pro-B Natriuret Pep 142 (5-450) pg/mL Total Protein (6.4-8.2) g/dL Albumin (3.4-5.0) g/dL Globulin (2.3-3.5) g/dL Albumin/Globulin Ratio (1.2-2.2) 06/04/19 06/04/19 Range/Units 12:04 12:04 WBC (4.5-11.0) K/uL RBC (3.30-5.50) M/uL Hgb (12.0-15.0) g/dL Hct (36.0-48.0) % MCV (80-98) fL MCH (27-31) pg MCHC (32-36) % Plt Count (150-400) K/uL Neut % (Auto) (36-66) % Lymph % (Auto) (24-44) % Redwood % (Auto) (2-6) % Eos % (Auto) (2-4) % Baso % (Auto) (0-1) % D-Dimer, Quantitative 743 H (0.0-400.0) ng/mL Sodium 138 L (140-148) mmol/L Potassium 3.8 (3.6-5.2) mmol/L Chloride 98 L (100-108) mmol/L Carbon Dioxide 28 (21-32) mmol/L Anion Gap 15.8 H (5.0-14.0) mmol/L BUN 16 (7-18) mg/dL Creatinine 1.1 H (0.6-1.0) mg/dL Est Cr Clr Drug Dosing 33.87 mL/min Estimated GFR (MDRD) 48 L (>60) Glucose 174 H (74-106) mg/dL Calcium 9.5 (8.5-10.1) mg/dL Total Bilirubin 0.4 (0.2-1.0) mg/dL AST 15 (15-37) U/L ALT 33 (12-78) U/L Alkaline Phosphatase 67 (46-116) U/L Troponin I (0.000-0.056) ng/mL NT-Pro-B Natriuret Pep (5-450) pg/mL Total Protein 7.2 (6.4-8.2) g/dL Albumin 3.8 (3.4-5.0) g/dL Globulin 3.4 (2.3-3.5) g/dL Albumin/Globulin Ratio 1.1 L (1.2-2.2) Meds: Medications Generic Name Dose Route Start Last Admin Trade Name Freq PRN Reason Stop Dose Admin Sodium Chloride 1,000 mls @ 999 mls/hr 06/04/19 14:45 06/04/19 14:52 Normal Saline IV 999 mls/hr ASDIRECTED [facility] Administration Sodium Chloride 75 mls @ 4 mls/sec 06/04/19 15:15 06/04/19 15:05 Normal Saline IV 4 mls/sec ASDIRECTED [facility] Administration Iopamidol 76 ml 06/04/19 15:15 06/04/19 15:04 Isovue-370 (76%) IV 76 ml . DIRECTED [facility] Administration Sodium Chloride 10 ml 06/04/19 14:39 06/04/19 15:05 Saline Flush FLUSH 10 ml ASDIRECTED PRN Administration Keep Vein Open - Re-Assessments/Exams Free Text/Narrative Re-Assessment/Exam: 06/04/19 15:34 angio of the chest was neg. pt will rtc for a lexiscan. Pt did have a stress test about 7 years ago. 06/04/19 15:42 Departure - Departure Time of Disposition: 15:35 Disposition: Home, Self-Care 01 Condition: Fair Clinical Impression: Atypical chest pain, Angina of effort Referrals: Renato Haynes MD [Primary Care Provider] - Forms: ED Department Discharge Care Plan Goals: rtc for a lexiscan and if the pain should get alot worse. Sepsis Event Note - Evaluation Sepsis Screening Result: No Definite Risk - Focused Exam Vital Signs: Vital Signs Pulse Resp BP Pulse Ox 06/04/19 14:12 66 15 141/82 H 99 06/04/19 13:12 72 22 H 132/77 98 06/04/19 12:42 67 17 136/80 96 06/04/19 12:16 74 15 139/78 97 Date Exam was Performed: 06/04/19 Time Exam was Performed: 15:38 - My Orders Last 24 Hours: My Active Orders 06/04/19 11:54 EKG Documentation Completion [RC] ASDIRECTED EKG 12 Lead [EK] Routine 06/04/19 12:04 UA W/MICROSCOPIC [URIN] Urgent 06/04/19 14:39 Sodium Chloride 0.9% [Saline Flush] 10 ml FLUSH ASDIRECTED PRN Saline Lock Insert [OM.PC] Routine 06/04/19 14:45 Sodium Chloride 0.9% [Normal Saline] 1,000 ml IV ASDIRECTED 06/04/19 15:15 Iopamidol [Isovue-370 (76%)] 76 ml IV . DIRECTED Sodium Chloride 0.9% [Normal Saline] 75 ml IV ASDIRECTED - Assessment/Plan Last 24 Hours: My Active Orders 06/04/19 11:54 EKG Documentation Completion [RC] ASDIRECTED EKG 12 Lead [EK] Routine 06/04/19 12:04 UA W/MICROSCOPIC [URIN] Urgent 06/04/19 14:39 Sodium Chloride 0.9% [Saline Flush] 10 ml FLUSH ASDIRECTED PRN Saline Lock Insert [OM.PC] Routine 06/04/19 14:45 Sodium Chloride 0.9% [Normal Saline] 1,000 ml IV ASDIRECTED 06/04/19 15:15 Iopamidol [Isovue-370 (76%)] 76 ml IV . DIRECTED Sodium Chloride 0.9% [Normal Saline] 75 ml IV ASDIRECTED
[2019-06-04] MEDS ORDERED: Sodium Chloride 0.9% 10 ML Syringe FLUSH PRN (14:39)
[2019-06-04] MEDS ORDERED: Sodium Chloride 0.9% 1,000 ML IV SCH (14:45)
[2019-06-04 14:50] VITALS: BP 141/82; PULSE 66
[2019-06-04] MEDS ORDERED: Iopamidol 755 Mg/ML 100 ML Bottle IV SCH (15:15)
[2019-06-04] MEDS ORDERED: Sodium Chloride 0.9% 75 ML IV SCH (15:15)
--- NOTE | 2019-06-04 15:29 | CT ---
Ang Chest CLINICAL HISTORY: History of PE TECHNIQUE: Thin section axial contiguous tomographic sections were taken through the chest after bolus IV iodinated contrast administration. Coronal and sagittal images were reconstructed. Auto dosage reduction and iterative reconstruction techniques employed. FINDINGS: There is a 6 mm noncalcified pulmonary nodule in the left lower lobe. This is unchanged from the 2018 study. No other pulmonary mass or infiltrate is identified. There are no effusions. There are no filling defects in the pulmonary arteries. No vessel cut off is identified. There is atheromatous change in the aorta without aneurysm or dissection. IMPRESSION: No evidence of pulmonary embolus No pulmonary mass or infiltrate
== END 2019-06-04 16:41 | disposition home or self-care (01) ==
LOC: JP.ED 11:28
DX: I20.8 Other forms of angina pectoris (principal); Z88.2 Allergy status to sulfonamides; Z79.899 Other long term (current) drug therapy
CPT/HCPCS: 36415; 71045; 71275; 80053; 83880; 84484; 85025; 85379; 93005; 93010; 96360; 99285; J7030; J7050; Q9967; 99284

== ENCOUNTER 2019-12-05 14:45 | Day surgery (SDC) | payer MEDICARE, BC ==
[2019-12-05] MEDS: metFORMIN 500 MG Tab PO SCH ×3 (12:18→18:09)
[2019-12-05] MEDS: glipiZIDE 5 MG Tab PO SCH ×3 (12:18→18:09)
[2019-12-05] MEDS: Enoxaparin 40 MG/0.4 ML Syringe SUBCUT SCH ×2 (12:23→21:40)
[~2019-12-05 14:45] MED LIST: 50% Dextrose in Water 50 ML Syringe IVPUSH PRN; Acetaminophen 500 MG Tab PO ONE; Bupivacaine 0.5% 50 ML MDV ONE; Bupivacaine 0.5%/EPINEPHrine 1:200,000 50 ML MDV ONE; Cyclobenzaprine 10 MG Tab PO PRN; Dextrose 5%-Lactated Ringers 1,000 ML IV SCH; Glucagon,Human Recombinant 1 MG Vial IM PRN; Glucose Gel 15 GM in 37.5 GM Tube PO PRN; HYDROmorphone 0.5 MG/0.5 ML Syringe IVPUSH PRN; HYDROmorphone 1 MG/ML Syringe IV PRN; Insulin Lispro 100 Unit/ML 3 ML KwikPen SUBCUT ONE; Insulin Lispro 100 Unit/ML 3 ML KwikPen SUBCUT PRN; Ketorolac 60 MG/2 ML SDV ONE; Lactated Ringers 1,000 ML IV SCH; Lactated Ringers 1,000 ML ONE; Lidocaine 1% with EPINEPHrine 1:100,000 50 ML MDV ONE; Midazolam 1 MG/ML 2 ML SDV ONE; Ondansetron 4 MG/2 ML SDV IVPUSH PRN; Propofol 200 MG/20 ML SDV ONE; ceFAZolin 2 GM in Premix Bag 1 BAG IV ONE; fentaNYL 100 MCG/2 ML SDV ONE
[2019-12-05] MEDS: ceFAZolin 1 GM in Premix Bag 1 BAG IV SCH ×2 (15:06→22:03)
[2019-12-05] MEDS: Hydrocortisone/Neomycin/Polymyxin B Otic Susp 10 ML Bottle EARBOTH SCH ×2 (15:08→21:37)
[2019-12-06] MEDS: ceFAZolin 1 GM in Premix Bag 1 BAG IV SCH (05:58)
[2019-12-06 07:11] VITALS: BP 160/84; PULSE 70
[2019-12-06] MEDS: glipiZIDE 5 MG Tab PO SCH (07:15)
[2019-12-06] MEDS: metFORMIN 500 MG Tab PO SCH (07:16)
[2019-12-06] MEDS ORDERED: Pantoprazole 40 MG Tab.CR PO SCH (07:30)
[2019-12-06] MEDS: Enoxaparin 40 MG/0.4 ML Syringe SUBCUT SCH (08:44)
[2019-12-06] MEDS: Hydrocortisone/Neomycin/Polymyxin B Otic Susp 10 ML Bottle EARBOTH SCH (08:44)
[2019-12-06] MEDS ORDERED: LUTEIN 20 MG PO SCH (09:00)
[2019-12-06] MEDS ORDERED: Hydrochlorothiazide/Triamterene 25-37.5 Tab PO SCH (09:00)
--- NOTE | 2019-12-17 14:11 | OR ---
DATE OF PROCEDURE: 12/05/2019 SURGEON: Mauricio Valentine MD PREOPERATIVE DIAGNOSES: 1. Right inguinal hernia. 2. Chronically inflamed epidermoid cyst overlying right breast. POSTOPERATIVE DIAGNOSES: 1. Incarcerated (indirect) right inguinal hernia. 2. Right ilioinguinal and iliohypogastric nerves at risk for scar entrapment. 3. Chronically inflamed epidermoid cyst overlying the right breast. OPERATIVE PROCEDURE: 1. Right inguinal exploration with: a. Repair of incarcerated right inguinal hernia with mesh (93047). b. Excision of portions of right ilioinguinal nerve (00457). c. Excision of portions of right iliohypogastric nerve (86190). d. Excision of chronically inflamed epidermoid cyst with layered closure (65336, 12441). ANESTHESIA: Local plus IV sedation. INDICATIONS FOR PROCEDURE: The patient presents with increasingly symptomatic right inguinal hernia. Additionally, she has a chronically inflamed lesion on the medial aspect of the right breast. This appears to probably a skin-related epidermoid cyst. Plan is to proceed with repair of the right inguinal hernia with mesh plug technique, along with excision of the epidermoid cyst. That we often will remove or excise a portion of the nerves in the area of the hernia repair to avoid chronic neuropathic pain postoperatively was gone over and otherwise potential risks including bleeding, infection, recurrence of the hernia, problems with mesh becoming infected were all reviewed, and the patient wishes to proceed. DETAILS OF PROCEDURE: The patient was taken to the operating room, and after IV sedation administered, both areas were prepped and draped. Attention initially was taken to the inguinal area. The area was anesthetized with 1% lidocaine mixed with epinephrine, after which a standard right inguinal incision was made and carried down through the skin and subcutaneous tissue and through the external oblique aponeurosis. Subaponeurotic flaps were then raised superiorly and inferiorly. The patient was noted to have a large hernia which extended downward over the pubic zone into the labial area. This contained what appeared to be some bowel, which was obviously palpable within the hernia sac. This was gradually dissected free and the hernia sac, along with the incarcerated bowel, reduced. This was an indirect hernia, which is somewhat unusual for a female in this age, with hernia sac obviously coming out lateral to the inferior epigastric vessels. Following this, an extra large mesh plug was then placed into the defect. This was affixed to the Augie's ligament with titanium tacking screws and the underside of the conjoint tendon medially, laterally, superiorly with horizontal mattress sutures of 0 Vicryl stitch. During the course of the dissection, each round ligament was sequentially divided and reduced, along with hernia sac, to limit the potential recurrence problems. Once this was completed, the conjoint tendon was affixed to the shelving portion of the inguinal ligament from length of the inguinal floor with a running 0 Vicryl stitch. The ilioinguinal nerve and iliohypogastric nerves were then both felt to be at risk for scar entrapment with subsequent flat portion of the mesh being placed. These were then divided and excised in the far lateral aspect of the incision. Flat portion of the mesh plug system was placed across the inguinal floor in the area of the closure. This was affixed to pubic tubercle with titanium tacking screw and then to the area of the inguinal floor with some titanium tacking screws and Vicryl sutures. The external oblique aponeurosis was then approximated with 3-0 Vicryl stitch, as was Liane's fascia, and the skin closed with a 4-0 Vicryl subcuticular stitch. The epidermoid cyst was then addressed. A transversely oriented elliptical incision made around the lesion, carried down through the skin, subcutaneous tissue, and the cyst was removed in an intact manner. The incision was then closed with some 3-0 and 4-0 Vicryl stitch deep and a 5-0 Prolene skin stitch and a dressing applied. In case of the epidermoid cyst over the breast, the lesion plus margin length was 1.2 cm and incision length 3.2 cm. The patient was taken to the recovery room in satisfactory condition. Physician certified surgical tech/first assistant, Xenia Sanchez, played an essential role in assisting in this case, helping to position the patient, retract structures as needed, as well as suturing and cutting sutures when indicated. Her presence improved patient safety and decreased operative time. Mauricio Valentine MD /[id number]
== END 2019-12-06 09:50 | disposition home or self-care (01) ==
LOC: EDSTATUS 14:45 → JP.SDS 14:45 → JP.MS 20:44 → JP.SDS 12-06 09:50
PROVIDERS: ATTEND Surgery
DX: K40.30 Unilateral inguinal hernia, with obstruction, without gangrene, not specified as recurrent (principal); G57.81 Other specified mononeuropathies of right lower limb; N60.81 Other benign mammary dysplasias of right breast; N64.1 Fat necrosis of breast; K21.9 Gastro-esophageal reflux disease without esophagitis; E11.9 Type 2 diabetes mellitus without complications; I10 Essential (primary) hypertension; Z88.2 Allergy status to sulfonamides
CPT/HCPCS: 19120; 49507; 64772; 82962; 88302; 88304; 94762; A9270; C1713; C1781; J0690; J1650; J1815; J1885; J2250; J2704; J3010; J3490; J7120; J7121

== ENCOUNTER 2020-08-20 06:56 | Day surgery (SDC) | payer MEDICARE, BC ==
[2020-08-20] MEDS ORDERED: Sodium Chloride 0.9% 10 ML Syringe FLUSH PRN (07:30)
[2020-08-20 09:32] VITALS: BP 152/81; PULSE 84
--- NOTE | 2020-08-20 14:59 | OR ---
DATE OF PROCEDURE: 08/20/2020 SURGEON: Natalie Harrington MD POSTOPERATIVE CARE: Postoperative care will be provided mainly at the [address] [place] [address] [facility] in conjunction with [facility]. PREOPERATIVE DIAGNOSIS: Cataract, right eye. POSTOPERATIVE DIAGNOSIS: Cataract, right eye. PROCEDURE: Phacoemulsification with intraocular lens placement, right eye. ANESTHESIA: Topical and intracameral. ESTIMATED BLOOD LOSS: Minimal. COMPLICATIONS: None. PATHOLOGY SPECIMENS: None. SURGICAL FINDINGS: None. INDICATION FOR PROCEDURE: The patient is a 80-year-old female with history of a visually significant cataract in the right eye, which interfered with activities of daily living. This consisted of a nuclear sclerosis cataract. Following careful discussion of the risks, benefits and alternatives to cataract extraction with intraocular lens placement including blindness and , the patient elected to proceed, and informed, written consent was obtained prior to the procedure. DESCRIPTION OF THE PROCEDURE: The patient was previously identified, and a mary placed above the right eye. All sources, including the patient, indicated that the right eye was the correct eye. The patient was subsequently taken to the operating room where standard monitors were applied. The patient was then prepped and draped in the usual sterile fashion for ophthalmic surgery. Attention was first directed at the 12 o'clock position where a paracentesis port was fashioned. Shugar solution followed by Viscoat was instilled into the eye. Attention was then directed to the 8:30 position where a triplanar incision was made in a near-clear manner using a keratome. A continuous capsulorrhexis was then made using a combination of the cystotome and Utrata forceps. Hydrodissection was achieved using a balanced salt solution, and the lens rotated nicely. Phacoemulsification was then done using a modified [id number] technique without complication. Phaco time was 10.84 CDE. The remaining cortex was removed using the irrigation/aspiration handpiece. Provisc was then instilled into the eye. A Technis lens, model DCB00, at 22.5 Diopters was then placed in the capsular bag using an [employer] [facility] injector. The remaining viscoelastic was removed using the irrigation/aspiration forceps. All wounds were then checked and found to be watertight. The lid speculum and drapes were removed. Maxitrol ointment was placed in the patient's right eye, and the eye was shielded. The patient tolerated the procedure well. The patient was instructed to follow up tomorrow. All needle and sponge counts were correct at the end of the procedure. There were no surgical complications. Natalie Harrington MD /[id number]
== END 2020-08-20 09:37 | disposition home or self-care (01) ==
LOC: JP.SDS 06:56
PROVIDERS: ATTEND Ophthalmology
DX: H25.11 Age-related nuclear cataract, right eye (principal); Z88.2 Allergy status to sulfonamides
CPT/HCPCS: V2632

== ENCOUNTER 2020-09-03 06:36 | Day surgery (SDC) | payer MEDICARE, BC ==
[2020-09-03] MEDS ORDERED: Sodium Chloride 0.9% 10 ML Syringe FLUSH PRN (07:00)
[2020-09-03 07:05] VITALS: PULSE 68
[2020-09-03 08:20] VITALS: BP 172/96
--- NOTE | 2020-09-03 11:28 | ER ---
DATE OF SERVICE: 09/03/2020 POSTOPERATIVE CARE: Postoperative care will be provided mainly at the [address] [place] [address] [facility] in conjunction with [facility]. PREOPERATIVE DIAGNOSIS: Cataract, left eye. POSTOPERATIVE DIAGNOSIS: Cataract, left eye. PROCEDURE: Phacoemulsification with intraocular lens placement, left eye. ANESTHESIA: Topical and intracameral. ESTIMATED BLOOD LOSS: Minimal. COMPLICATIONS: None. PATHOLOGY SPECIMENS: None. SURGICAL FINDINGS: None. INDICATION FOR PROCEDURE: The patient is a 80-year-old female with history of a visually significant cataract in the left eye, which interfered with activities of daily living. This consisted of a nuclear sclerosis cataract. Following careful discussion of the risks, benefits and alternatives to cataract extraction with intraocular lens placement including blindness and , the patient elected to proceed, and informed, written consent was obtained prior to the procedure. DESCRIPTION OF THE PROCEDURE: The patient was previously identified, and a mary placed above the left eye. All sources, including the patient, indicated that the left eye was the correct eye. The patient was subsequently taken to the operating room where standard monitors were applied. The patient was then prepped and draped in the usual sterile fashion for ophthalmic surgery. Attention was first directed at the 12 o'clock position where a paracentesis port was fashioned. Shugar solution followed by Viscoat was instilled into the eye. Attention was then directed to the 8:30 position where a triplanar incision was made in a near-clear manner using a keratome. A continuous capsulorrhexis was then made using a combination of the cystotome and Utrata forceps. Hydrodissection was achieved using a balanced salt solution, and the lens rotated nicely. Phacoemulsification was then done using a modified [id number] technique without complication. Phaco time was 7.82 CDE. The remaining cortex was removed using the irrigation/aspiration handpiece. Provisc was then instilled into the eye. A Technis lens, model DCB00, at 23.0 Diopters was then placed in the capsular bag using an [place] injector. The remaining viscoelastic was removed using the irrigation/aspiration forceps. All wounds were then checked and found to be watertight. The lid speculum and drapes were removed. Maxitrol ointment was placed in the patient's left eye, and the eye was shielded. The patient tolerated the procedure well. The patient was instructed to follow up tomorrow. All needle and sponge counts were correct at the end of the procedure. There were no surgical findings. Natalie Harrington MD /[id number]
== END 2020-09-03 09:00 | disposition home or self-care (01) ==
LOC: JP.SDS 06:36
PROVIDERS: ATTEND Ophthalmology
DX: E11.36 Type 2 diabetes mellitus with diabetic cataract (principal); H25.12 Age-related nuclear cataract, left eye; I10 Essential (primary) hypertension; Z88.2 Allergy status to sulfonamides
CPT/HCPCS: V2632

== ENCOUNTER 2021-07-12 05:32 | Day surgery (SDC) | payer MEDICARE ==
[2021-07-12] MEDS ORDERED: Lactated Ringers 1,000 ML IV SCH (06:00)
[2021-07-12] MEDS ORDERED: Meropenem 500 MG in Sodium Chloride 0.9% 50 ML IV ONE (07:00)
[2021-07-12] MEDS ORDERED: Propofol 200 MG/20 ML SDV ONE (07:07)
[2021-07-12] MEDS ORDERED: fentaNYL 100 MCG/2 ML SDV ONE ×2 (07:08→07:18)
[2021-07-12 08:37] VITALS: BP 152/75; PULSE 54
== END 2021-07-12 09:00 | disposition home or self-care (01) ==
LOC: JP.SDS 05:32
PROVIDERS: ATTEND Surgery
DX: Z12.11 Encounter for screening for malignant neoplasm of colon (principal); K64.9 Unspecified hemorrhoids; I10 Essential (primary) hypertension; E11.9 Type 2 diabetes mellitus without complications; Z88.2 Allergy status to sulfonamides; Z80.0 Family history of malignant neoplasm of digestive organs
CPT/HCPCS: J2185; J2704; J3010; J7120